=== PATIENT | female | born 1935 | race Caucasian/White ===

== ENCOUNTER 2023-08-19 14:10 | Outpatient (CLI) | payer MEDICARE, BC, SELFPAY ==
--- NOTE | 2023-08-19 14:15 | ECHO_ITS ---
Patient Info Name: Graciela Benitez Age: 88 years : 1935 Gender: Female Ht: 63 in Wt: 175 lbs BSA: 1.91 m2 HR: 115 bpm BP: 102 / 80 mmHg Heart Rhythm: Tachycardia Technical Quality: Good Exam Date: 08/19/2023 2:34 PM Exam Location: [facility] Patient Status: Outpatient Admit Date: 08/19/2023 Staff Ordering Physician: Verónica Boss APRN Duplicating Machine Mechanic: Yoselyn Eng RDCS Attending Provider: Verónica Boss APRN Exam Type: CA echo doppler color flow Study Info Indications R60.9 - Edema, unspecified Complete two-dimensional, color flow and Doppler transthoracic echocardiogram is performed. Summary 1. Complete two-dimensional, color flow and Doppler transthoracic echocardiogram is performed. 2. Left ventricular chamber dimension is normal. 3. Left ventricular systolic function is hyperdynamic, estimated at >70%. 4. There is mild concentric increased left ventricular wall thickness. 5. The left ventricular diastolic function is grade I diastolic dysfunction. 6. E/e' 9 is minimally elevated. 7. There is moderate aortic valve sclerosis. 8. There is mild aortic valve stenosis with a peak velocity of 256 cm/s, mean gradient of 13 mmHg, and aortic valve area of 1.7 cm2. 9. There is mild tricuspid valve regurgitation. 10. No pulmonary hypertension, estimated pulmonary arterial systolic pressure is 34 mmHg. 11. There is trace pulmonic regurgitation. Left Ventricle E/e' 9 is minimally elevated. Left ventricular chamber dimension is normal. Left ventricular systolic function is hyperdynamic, estimated at >70%. There is mild concentric increased left ventricular wall thickness. The left ventricular diastolic function is grade I diastolic dysfunction. Right Ventricle Right ventricular chamber dimension is normal. Right ventricular systolic function is normal. Left Atria Left atrial chamber dimension is normal. Right Atria Right atrial chamber dimension is normal. Aortic Valve The aortic valve is probable trileaflet. There is moderate aortic valve sclerosis. There is mild aortic valve stenosis with a peak velocity of 256 cm/s, mean gradient of 13 mmHg, and aortic valve area of 1.7 cm2. There is no aortic valve regurgitation. Pulmonic Valve There is trace pulmonic regurgitation. Mitral Valve There is no mitral valve stenosis. There is no mitral valve regurgitation. Tricuspid Valve There is mild tricuspid valve regurgitation. No pulmonary hypertension, estimated pulmonary arterial systolic pressure is 34 mmHg. Pericardium/Pleural There is no pericardial effusion. Inferior Vena Cava Normal inferior vena cava with >50% collapse upon inspiration consistent with normal right atrial pressure, 5 mmHg. Aorta The aortic root size at the sinus of Valsalva is normal. Left Ventricular Outflow Tract Name Value Normal LVOT 2D LVOT Diameter 2.0 cm LVOT Doppler LVOT Peak Gradient 8 mmHg LVOT Mean Gradient 3 mmHg LVOT VTI 20 cm LVOT VTI/AV VTI Ratio 0.6 LVOT Stroke Volume 63 ml LVOT CO 5.7 l/min
== END 2023-08-19 14:11 | disposition home or self-care (01) ==
LOC: ANHCARD 14:11
PROVIDERS: PCP Nurse Practitioner Family; Visit Provider Nurse Practitioner Family
DX: R60.9 Edema, unspecified (principal); R53.83 Other fatigue; R06.09 Other forms of dyspnea; I35.0 Nonrheumatic aortic (valve) stenosis; I36.1 Nonrheumatic tricuspid (valve) insufficiency
CPT/HCPCS: 93306

== ENCOUNTER 2023-11-10 15:34 | Outpatient (CLI) | payer MEDICARE, BC, SELFPAY ==
--- NOTE | ~2023-11-10 | XR_ITS ---
EXAMINATION: XR chest 2V Exam Date/Time: 11/10/2023 15:55 OPTICAL ENGINEER HISTORY: PAIN AFTER FALL Comparison: 11/19/2019. RESULT: Lines, tubes, and devices: None. Lungs and pleura: Senescent changes. Streaky and subsegmental opacities in the left lower lung. Cardiomediastinal silhouette: Stable. Other: No acute osseous or upper abdominal finding. IMPRESSION: Streaky and subsegmental lower lung opacities, may represent atelectasis and/or consolidation. Reviewed, dictated and finalized at location K. CAL ENGINEER
[2023-11-10 16:13] LABS: Basophils Absolute Auto 0.1 K/mm3 (0.0-0.1); Basophils Percent Auto 0.5 % (0.2-1.2); Eosinophils Absolute Auto 0.1 K/mm3 (0-0.3); Eosinophils Percent Auto 0.7 % (0-4.4); Hematocrit 44.9 % (37.0-47.0); Hemoglobin 14.9 g/dL (12.0-15.0); Immature Granulocyte Absolute 0.02 K/mm3 (0.00-0.031); Immature Granulocyte Percent A 0.2 % (0-0.5); Lymphocytes Absolute Auto 2.08 K/mm3 (0.9-3.2); Mean Corpuscular HGB Conc 33.2 g/dl (32-36); Mean Corpuscular Hemoglobin 30.7 pg (26-34); Mean Corpuscular Volume 92.6 fl (80-100); Mean Platelet Volume 10.4 fl (7.4-10.4); Monocytes Absolute Auto 0.7 K/mm3 (0.1-0.6); Monocytes Percent Auto 6.8 % (2.6-8.5); Neutrophils Percent Auto 70.8 % (45.5-73.1); Platelet Count Result 295 k/mm3 (150-375); Red Blood Count 4.85 M/mm3 (4.2-5.4); Red Cell Distribution Width 13.2 % (11.5-14.5); White Blood Count 9.9 K/mm3 (4.5-10.0)
[2023-11-10 16:26] LABS: Alanine Aminotransferase 19 U/L (6-35); Albumin Level 4.4 g/dL (3.5-5.1); Alkaline Phosphatase 109 U/L (38-126); Anion Gap 11 mmol/L (8-16); Aspartate Amino Transferase 25 U/L (14-36); Bilirubin,Total 0.7 mg/dL (0.2-1.3); Blood Urea Nitrogen 25 mg/dL (7-17); Carbon Dioxide 24 mmol/L (22-30); Chloride 106 mmol/L (98-107); Cholesterol 177 mg/dL (0-200); Estimated Glomerular Filt Rate > 60; Glucose 123 mg/dL (65-110); HDL Direct 67 mg/dL; Sodium 141 mmol/L (137-145); Triglycerides 131 mg/dL (<150)
[2023-11-10 16:33] LABS: NT Pro B Type Natriuretic Pept 111 pg/mL (19.9-100)
[2023-11-10 16:37] LABS: LDL Cholesterol Direct 77 mg/dL
[2023-11-10 17:15] LABS: Vitamin D 25 Hydroxy 51.7 ng/mL
[2023-11-10 17:25] LABS: Vitamin B12 > 1000.0 pg/mL (239-931)
[2023-11-10 17:45] LABS: Hemoglobin A1C 5.6 % (<5.7)
== END 2023-11-10 15:35 | disposition home or self-care (01) ==
PROVIDERS: PCP Nurse Practitioner Family; Visit Provider Nurse Practitioner Family
DX: R60.9 Edema, unspecified (principal); I10 Essential (primary) hypertension; R53.83 Other fatigue; E55.9 Vitamin D deficiency, unspecified; E78.2 Mixed hyperlipidemia; Z78.0 Asymptomatic menopausal state; R06.09 Other forms of dyspnea; Z79.899 Other long term (current) drug therapy; Z13.228 Encounter for screening for other metabolic disorders; Z13.21 Encounter for screening for nutritional disorder; Z13.1 Encounter for screening for diabetes mellitus; Z13.0 Encounter for screening for diseases of the blood and blood-forming organs and certain disorders involving the immune mechanism; R09.89 Other specified symptoms and signs involving the circulatory and respiratory systems
CPT/HCPCS: 36415; 71046; 80053; 80061; 82306; 82607; 83036; 83880; 84443; 85025

== ENCOUNTER 2024-10-25 11:43 | Outpatient (CLI) | payer MEDICARE, BC, SELFPAY ==
--- NOTE | 2024-10-25 11:49 | ECHO_ITS ---
Patient Info Name: Graciela Benitez Age: 89 years : 1935 Gender: Female Ht: 63 in Wt: 189 lbs BSA: 1.99 m2 HR: 100 bpm BP: 123 / 85 mmHg Technical Quality: Fair Exam Date: 10/25/2024 12:02 PM Exam Location: Echo Lab Patient Status: Outpatient Admit Date: 10/25/2024 Staff Ordering Physician: Sascha Shaikh DO General Manager Oracle Data Cloud: Marine Cast RDCS Attending Provider: Sascha Shaikh DO Referring Physician: Neel COSTA; Exam Type: CA echo doppler color flow Study Info Indications I35.0 - Nonrheumatic aortic (valve) stenosis Complete two-dimensional, color flow and Doppler transthoracic echocardiogram is performed. Strain analysis performed. Summary 1. Complete two-dimensional, color flow and Doppler transthoracic echocardiogram is performed. 2. Left ventricular chamber dimension is normal. 3. Left ventricular systolic function is hyperdynamic, estimated at >70%. 4. There is mild concentric increased left ventricular wall thickness. 5. The left ventricular diastolic function is grade I diastolic dysfunction. 6. Global longitudinal strain is slightly abnormal at -16.1%. 7. There is moderate aortic valve sclerosis. 8. There is mild aortic valve stenosis with a peak velocity of 262 cm/s, mean gradient of 12 mmHg, and aortic valve area of 1.6 cm2. 9. There is trace tricuspid valve regurgitation. 10. No pulmonary hypertension, estimated pulmonary arterial systolic pressure is 37 mmHg. Left Ventricle Global longitudinal strain is slightly abnormal at -16.1%. Tissue doppler was not performed. Left ventricular chamber dimension is normal. Left ventricular systolic function is hyperdynamic, estimated at >70%. There is mild concentric increased left ventricular wall thickness. The left ventricular diastolic function is grade I diastolic dysfunction. Right Ventricle Right ventricular chamber dimension is normal. Right ventricular systolic function is normal. Left Atria Left atrial chamber dimension is normal. Right Atria Right atrial chamber dimension is normal. Aortic Valve The aortic valve is trileaflet. There is moderate aortic valve sclerosis. There is mild aortic valve stenosis with a peak velocity of 262 cm/s, mean gradient of 12 mmHg, and aortic valve area of 1.6 cm2. There is no aortic valve regurgitation. Pulmonic Valve There is no pulmonic regurgitation. Mitral Valve There is no mitral valve stenosis. There is no mitral valve regurgitation. Tricuspid Valve There is trace tricuspid valve regurgitation. No pulmonary hypertension, estimated pulmonary arterial systolic pressure is 37 mmHg. Pericardium/Pleural There is no pericardial effusion. Inferior Vena Cava Normal inferior vena cava with >50% collapse upon inspiration consistent with normal right atrial pressure, 5 mmHg. Aorta The aortic root size at the sinus of Valsalva is normal. Left Ventricular Outflow Tract Name Value Normal LVOT 2D LVOT Diameter 2.0 cm LVOT Doppler LVOT Peak Gradient 6 mmHg LVOT Mean Gradient 3 mmHg LVOT VTI 22 cm LVOT VTI/AV VTI Ratio 0.5 LVOT Stroke Volume 72 ml LVOT CO 5.9 l/min LVOT CI 3.0 l/min/m2 Pulmonic Valve Name Value Normal RVOT Doppler RVOT Peak Gradient 3 mmHg PV Doppler PV Peak Gradient 4 mmHg Mitral Valve Name Value Normal MV Doppler MV [place] 457 cm/s2 MV PHT 39 ms MV Area (PHT) 5.7 cm2 4.0-5.0 MV Diastolic Function MV E Peak Velocity 61 cm/s MV A Peak Velocity 110 cm/s MV E/A 0.6 MV Decel Time 134 ms Tricuspid Valve Name Value Normal TV Regurgitation Doppler TR Peak Velocity 281 cm/s TR Peak Gradient 28 mmHg Estimated PAP/RSVP RA Pressure 5 mmHg <=5 PA Systolic Pressure 37 mmHg <36 RV Systolic Pressure 37 mmHg <36 Aorta Name Value Normal Ascending Aorta Ao Root Diameter (MM) 3.0 cm Ao Root Diam Index (MM) 1.5 cm/m2 Aortic Valve Name Value Normal AV 2D/MM AV Area (Planimetry) 1.2 cm2 AV Doppler AV Peak Velocity 262 cm/s AV Peak Gradient 22 mmHg AV Mean Gradient 12 mmHg AV VTI 44 cm AV Area (Cont Eq VTI) 1.6 cm2 >=3.0 AV Area (Cont Eq Jean) 1.7 cm2 AV Regurgitation 2D LVOT Area 3.2 cm2 Ventricles Name Value Normal LV Dimensions 2D/MM IVS Diastolic Thickness (2D) 1.0 cm 0.6-1.0 IVS Diastole Thickness (MM) 0.7 cm 0.6-0.9 LVID Diastole (2D) 3.1 cm 3.8-5.2 LVID Diastole (MM) 4.5 cm 3.8-5.2 LVIW Diastolic Thickness (2D) 0.8 cm 0.6-0.9 LVIW Diastolic Thickness (MM) 0.7 cm 0.6-0.9 LVID Systole (2D) 2.0 cm 2.2-3.5 LVID Systole (MM) 2.7 cm 2.2-3.5 LVOT Diameter 2.0 cm LV Mass (2D Cubed) 69.25 g 67.00-162.00 LV Mass Index (2D Cubed) 35 g/m2 43-95 Relative Wall Thickness (2D) 0.49 LV Mass (MM Cubed) 102.84 g 67.00-162.00 LV Mass Index (MM Cubed) 52 g/m2 43-95 Relative Wall Thickness (MM) 0.32 LV Fractional Shortening/Ejection Fraction 2D/MM LV Fractional Shortening (2D) 36 % 27-45 LV Fractional Shortening (MM) 40 % 27-45 LV EF (MM Teicholz) 71 % 54-74 LV EF (2D Teicholz) 67 % 54-74 LV Diastolic Volume (4C MOD) 47 ml LV EF (4C MOD) 67 % LV Diastolic Volume (2C MOD) 54 ml LV EF (2C MOD) 65 % LV Diastolic Volume (BP MOD) 50 ml 46-106 LV Diastolic Volume Index (BP MOD) 25 ml/m2 29-61 LV Systolic Volume (BP MOD) 17 ml 14-42 LV Systolic Volume Index (BP MOD) 9 ml/m2 8-24 LV EF (BP MOD) 65 % 54-74 LV Diastolic Length (4C) 7.3 cm LV Systolic Length (4C) 6.4 cm LV Stroke Volume (4C MOD) 31 ml Atria Name Value Normal LA Dimensions LA Dimension (MM) 3.7 cm 2.7-3.8 LA Volume (4C A-L) 22 ml LA Volume (BP A-L) 28 ml RA Dimensions RA Area (4C) 13.1 cm2 <=18.0 EchoPAC Name Value Normal AutoEF LVCO_BiP_Q (Rtoa6ZSL) 3.5 l/min LVEF_BiP_Q (Llzw1UXT) 59 % LVSV_BiP_Q (Fixq3QMC) 39 ml LVVED_BiP_Q (Lwas7WDL) 65 ml LVVES_BiP_Q (Azur9ACF) 27 ml HR_4Ch_Q (Bhat7IPU) 89 bpm LVCO_4Ch_Q (Dvqd8HBI) 2.9 l/min LVEF_4Ch_Q (Gpuj8VWY) 58 % LVLd_4Ch_Q (Cjht3NXU) 7.0 cm LVLs_4Ch_Q (Gwhv0XIK) 5.8 cm LVSV_4Ch_Q (Ibqg4ITY) 32 ml LVVED_4Ch_Q (Lsbh2BNE) 56 ml LVVES_4Ch_Q (Kxhz0CPW) 23 ml HR_2Ch_Q (Fipq4CHM) 89 bpm LVCO_2Ch_Q (Wjil3HZU) 4.2 l/min LVEF_2Ch_Q (Nkzc6ELD) 61 % LVLd_2Ch_Q (Yovi7UEW) 7.2 cm LVLs_2Ch_Q (Vrax8OGT) 5.8 cm LVSV_2Ch_Q (Lidx8PXW) 47 ml LVVED_2Ch_Q (Jvln9EVJ) 77 ml LVVES_2Ch_Q (Mhul7QLZ) 30 ml ALLISON AA peak sys SL (AWMA) 21.4 % AAS peak sys SL (AWMA) 21.7 % AI peak sys SL (AWMA) 23.4 % AL peak sys SL (AWMA) 17.2 % AP peak sys SL (AWMA) 13.8 % peak sys SL (AWMA) 16.9 % AVC (AWMA) 322 ms BA peak sys SL (AWMA) 18.6 % BAS peak sys SL (AWMA) 14.9 % BI peak sys SL (AWMA) 17.0 % BL peak sys SL (AWMA) 11.6 % BP peak sys SL (AWMA) 13.2 % BS peak sys SL (AWMA) 14.1 % G peak SL(A2C) (AWMA) 19.5 % G peak SL(A4C) (AWMA) 15.3 % G peak SL(APLAX) (AWMA) 13.7 % G peak SL(Avg) (AWMA) 16.1 % MA peak sys SL (AWMA) 23.6 % MAS peak sys SL (AWMA) 9.6 % NV peak sys SL (AWMA) 14.6 % ML peak sys SL (AWMA) 17.8 % MP peak sys SL (AWMA) 8.5 % MS peak sys SL (AWMA) 19.7 % Report Signatures
== END 2024-10-25 11:44 | disposition home or self-care (01) ==
PROVIDERS: PCP Nurse Practitioner Family; Visit Provider Internal Medicine Cardiovascular Disease
DX: I35.0 Nonrheumatic aortic (valve) stenosis (principal)
CPT/HCPCS: 93306

== ENCOUNTER 2025-01-24 11:11 | Outpatient (CLI) | payer MEDICARE, BC, SELFPAY ==
[2025-01-24 11:44] LABS: Hematocrit 45.2 % (37.0-47.0); Hemoglobin 14.8 g/dL (12.0-15.0); Mean Corpuscular HGB Conc 32.7 g/dl (32-36); Mean Corpuscular Hemoglobin 31.4 pg (26-34); Mean Corpuscular Volume 95.8 fl (80-100); Mean Platelet Volume 10.3 fl (7.4-10.4); Platelet Count Result 246 k/mm3 (150-375); Red Blood Count 4.72 M/mm3 (4.2-5.4); Red Cell Distribution Width 12.7 % (11.5-14.5); White Blood Count 7.5 K/mm3 (4.5-10.0)
[2025-01-24 12:00] LABS: Alanine Aminotransferase 19 U/L (6-35); Albumin Level 4.2 g/dL (3.5-5.1); Alkaline Phosphatase 72 U/L (38-126); Anion Gap 9 mmol/L (4-12); Aspartate Amino Transferase 21 U/L (14-36); Bilirubin,Total 0.7 mg/dL (0.2-1.3); Blood Urea Nitrogen 25 mg/dL (7-17); Calcium 9.9 mg/dL (8.4-10.2); Carbon Dioxide 29 mmol/L (22-30); Chloride 104 mmol/L (98-107); Cholesterol 184 mg/dL (0-200); Estimated Glomerular Filt Rate 56; Glucose 135 mg/dL (65-110); HDL Direct 69 mg/dL; Potassium 4.5 mmol/L (3.4-5.0); Sodium 142 mmol/L (137-145); Triglycerides 95 mg/dL (<150)
[2025-01-24 12:14] LABS: LDL Cholesterol Direct 83 mg/dL
[2025-01-24 13:10] LABS: Folic Acid > 20.0 ng/mL (2.76->20)
[2025-01-24 13:12] LABS: Vitamin D 25 Hydroxy 87.2 ng/mL
--- OUTSIDE RECORDS SUMMARY | 2025-01-24 13:19 | XMS_ITS | Continuity of Care Document ---
Author Organization [facility] Address [address] [place] [address] Phone Care Team Providers Care Textile Knitter Name Role Phone Nurse, Registered Unavailable Unavailable Semaj RN, Aaron Unavailable Unavailable Procedures Procedure Date Immunization Admin COVID19 Pfizer Dose 2 COVID19 Vaccine Pfizer Immunization Admin COVID19 Pfizer Dose 1 COVID19 Vaccine Pfizer Advance Directives Directive Yes / No Effective Date File Name No Information Encounters Encounter Description Practice Location Reason(s) For Visit Diagnoses Date Provider Providers Copied on Encounter [facility] , [address], [place], [place], [address], [place] tel:[phone] COVID Mobile PFIZER 2ND DOSE (chief complaint) Encounter for immunization Nurse Registered . [address] [place] [address], [id number], [place]. tel:[phone] Referring Provider: Mellissa Villasenor, [address], [place], [address]. tel:[phone] lting Provider: Aaron Cha, [address], [place], [address]. tel:[phone] [facility] , [address], [place], [place], [address], [place] tel:[phone] COVID Mobile PFIZER DOSE 1 (chief complaint) Encounter for immunization Nurse Registered . [address], [place], [place], [address], [place]. tel:[phone] Referring Provider: Mellissa Villasenor, [address], [place], [address]. tel:[phone] Family History Family Member Type Diagnosis Age At Onset No Information Immunizations Vaccine Date Status Comments COVID-19 Pfizer administered Source: New Immunization Record COVID-19 Pfizer administered Note: PATIEN T TOLERATED WELL ; Source: New Immunization Record Payers Payer name Insurance type Covered alliance party ID Authoriza tion(s) No Information Social [...]
--- OUTSIDE RECORDS SUMMARY | 2025-01-24 13:19 | XMS_ITS | Clinical Summary ---
Author Organization [facility] Address [address] [address] Phone Care Team Providers Care Club Former Name Role Phone John Hernandez MD Primary Care Provider [phone] Ancelmorojas Emiliano Jason DO Unavailable [phone] Allergies Active Allergy Reactions Criticality Noted Date Comments Benzonatate Unknown 01/23/2017 Cefaclor Unknown 01/23/2017 Medications lisinopril (PRINIVIL, ZESTRIL) 10 MG Tablet daily. Active Niacin Powder nightly. Active amLODIPine (NORVASC) 5 MG Tablet daily. Active pravastatin (PRAVACHOL) 10 MG Tablet daily. Active Probiotic Product ([facility] DIGESTIVE PROBIOTIC) Capsule daily. Active Glucosamine HCl ([facility] GLUCOSAMINE) 1500 MG Tablet daily. Activ e [place]-3 Fatty Acids ([facility] FISH OIL) 1200 MG CAPSULE DELAYED RELEASE daily. Active Cyanocobalamin (V-R VITAMIN B-12 TR) 1000 MCG Tablet Controlled Release daily. Active Cholecalciferol ([facility] VITAMIN D3) 1000 UNIT Capsule daily. Active Calcium-Magnesi um-Zinc 167-83-8 MG Tablet daily. Active Aspirin 81 MG Tablet daily. Active polyethylene glycol (MIRALAX) Powder Use entire 255g bottle with 64oz of clear liquid as directed for colonoscopy prep. 255 g 0 6 Active Active Problems Problem Noted Date Diagnosed Date Hiatal hernia Family History Medical History Relation Name Comments Diabetes Father Heart Attack Father Hypertension Father Cancer Sister Breast Relation Name Status Comments Father Sister Social History Tobacco Use Types Packs/Day Years Used Date Smoking Tobacco: Never Alcohol Use Standard Drinks/Week Comments No 0 (1 standard drink = 0.6 oz pur e alcohol) Comments Unknown Sex and Gender Information Value Date Recorded Sex Assigned at Not on file Legal Sex Female 9:59 PM CDT Gender Identity Not on file Sexual Orientation Not on file Plan of Treatment Health Maintenance Due Date Last Done Comments DEXA Bone Density 1935 Hepatitis C Virus (HCV) Screening 1935 TdaP Immunization 1935 Zoster Immunization (1 of 2) 1987 Respiratory Syncytial Virus (RSV) Immunization (Adult) (1 - 1-dose 75+ series) 2012 Pneumococcal Immunization (50+ years) (2 of 2 - PPSV23) 12/08/2018 12/08/2017 Influenza Immunization (#1) 07/31/202407/31, 09/13/2014 SARS-COV-2 Immunization ( season) 2024 09/07/2021, 01/11/2021, 12/23/2020 Pneumococcal Immunization Combined Discontinued 12/08/2017 Hepatitis B Immunization Aged Out No longer eligible based on patient's age to complete this topic Meningococcal Immunization (ACWY) Aged Out No longer eligible based on patient's age to complete this topic Rotavirus Immunization Aged Out No lo nger eligible based on patient's age to complete this topic Insurance MEDICARE [facility] Care Teams Club Former Relationship Specialty Start Date End Date John Hernandez MD [address] [place], [place] [id number] PCP - General Internal Medicine 09/25/16 Emiliano Pedraza DO [address] [place] [address] Gastroenterology 01/19/17
== END 2025-01-24 11:12 | disposition home or self-care (01) ==
LOC: ANHLAB 11:13
PROVIDERS: PCP Nurse Practitioner Family; Visit Provider Nurse Practitioner Family
DX: I10 Essential (primary) hypertension (principal); I35.8 Other nonrheumatic aortic valve disorders; I35.0 Nonrheumatic aortic (valve) stenosis; E78.2 Mixed hyperlipidemia; E55.9 Vitamin D deficiency, unspecified; R79.89 Other specified abnormal findings of blood chemistry; K44.9 Diaphragmatic hernia without obstruction or gangrene; R29.818 Other symptoms and signs involving the nervous system; R41.89 Other symptoms and signs involving cognitive functions and awareness; Z00.00 Encounter for general adult medical examination without abnormal findings
CPT/HCPCS: 36415; 80053; 80061; 82306; 82607; 82746; 85027

== ENCOUNTER 2025-07-25 11:28 | Outpatient (CLI) | payer MEDICARE, BC, SELFPAY ==
--- OUTSIDE RECORDS SUMMARY | 2021-01-11 06:30 | XMS_ITS | Continuity of Care Document ---
Author Organization [facility] Address [address] [place] [address] Phone Care Team Providers Care Master Automotive Technician Name Role Phone Nurse, Registered Unavailable Unavailable Semaj RN, Aaron Unavailable Unavailable Procedures Procedure Date Immunization Admin COVID19 Pfizer Dose 2 COVID19 Vaccine Pfizer Immunization Admin COVID19 Pfizer Dose 1 COVID19 Vaccine Pfizer Advance Directives Directive Yes / No Effective Date File Name No Information Encounters Encounter Description Practice Location Reason(s) For Visit Diagnoses Date Provider Providers Copied on Encounter [facility] , [address], [place], [place], [address], [place] tel:[phone] COVID Mobile PFIZER 2ND DOSE (chief complaint) Encounter for immunization Nurse Registered . [address] [place] [address], [id number], [place]. tel:[phone] Referring Provider: Mellissa Villasenor, [address], [place], [address]. tel:[phone] lting Provider: Aaron Cha, [address], [place], [address]. tel:[phone] [facility] , [address], [place], [place], [id number], [place] tel:[phone] COVID Mobile PFIZER DOSE 1 (chief complaint) Encounter for immunization Nurse Registered . [address], [place], [place], [id number], . tel:[phone] Referring Provider: Mellissa Villasenor, [address], [place], [address]. tel:[phone] Family History Family Member Type Diagnosis Age At Onset No Information Immunizations Vaccine Date Status Comments COVID-19 Pfizer administered Source: New Immunization Record COVID-19 Pfizer administered Note: PATIEN T TOLERATED WELL ; Source: New Immunization Record Payers Payer name Insurance type Covered constitution party ID Authoriza tion(s) No Information Social History Type Description Quantity Date Captured Comments Sex Female Smoking Status No Information Gender Identity Female Chief Complaint And Reason For Visit From encounter dated '01/11/2021 11:30'. PFIZER 2ND DOSE (chief complaint) Reason For Referral Reason For Referral No Information History Of Present Illness Encounter Date Complaint History Of Prese nt Illness PFIZER 2ND DOSE PFIZER DOSE 1 Functional Status Date Functional Assessmen t No Information Instructions Date Instruction Additional Infor mation No Information Assessments Type Assessment Date assessment Encounter for immunization Patient Care Teams Name Effective Dates (start - stop) Status Members No Information
[2025-07-25 11:51] LABS: Hematocrit 44.4 % (37.0-47.0); Hemoglobin 14.4 g/dL (12.0-15.0); Mean Corpuscular HGB Conc 32.4 g/dl (32-36); Mean Corpuscular Hemoglobin 30.8 pg (26-34); Mean Corpuscular Volume 95.1 fl (80-100); Platelet Count Result 240 k/mm3 (150-375); Red Blood Count 4.67 M/mm3 (4.2-5.4); White Blood Count 7.3 K/mm3 (4.5-10.0)
--- OUTSIDE RECORDS SUMMARY | 2025-07-25 11:52 | XMS_ITS | Clinical Summary ---
Author Organization [facility] Address [address], [address] [address] Phone Care Team Providers Care Nutrition Educator Name Role Phone John Hernandez MD Primary Care Provider [phone] Emiliano Pedraza DO Unavailable [phone] Allergies Active Allergy Reactions Criticality Noted Date Comments Benzonatate Unknown 01/23/2017 Cefaclor Unknown 01/23/2017 Medications lisinopril (PRINIVIL, ZESTRIL) 10 MG Tablet daily. Active Niacin Powder nightly. Active amLODIPine (NORVASC) 5 MG Tablet daily. Active pravastatin (PRAVACHOL) 10 MG Tablet daily. Active Probiotic Product ([facility] DIGESTIVE PROBIOTIC) Capsule daily. Active Glucosamine HCl ([facility] GLUCOSAMINE) 1500 MG Tablet daily. Activ e [place]-3 Fatty Acids ([facility] FISH OIL) 1200 MG CAPSULE DELAYED RELEASE daily. Active Cyanocobalamin (V-R VITAMIN B-12 TR) 1000 MCG Tablet Controlled Release daily. Active Cholecalciferol ([facility] VITAMIN D3) 1000 UNIT Capsule daily. Active [...] Health Maintenance Due Date Last Done Comments Hepatitis C Virus (HCV) Screening 1935 TdaP Immunization 1935 Zoster Immunization (1 of 2) 1987 Respiratory Syncytial Virus (RSV) Immunization (Adult) (1 - 1-dose 75+ series) 2012 Pneumococcal Immunization (5 0+ years) (2 of 2 - PCV20 or PCV21) 12/08/2018 12/08/2017 SARS-COV-2 Immunization (4 - season) 2024 09/07/2021, 01/11/2021, 12/23/2020 Influenza Immunization (#1) 07/31/202507/31, 09/13/2014 Pneumococcal Immunization Combined Discontinued 12/08/2017 Hepatitis B Immunization Aged Out No longer eligible based on patient's age to complete this topic Human Papillomavirus (HPV) Immunization Aged Out No longer eligible based on patient's age to complete this topic Meningococcal Immunization (ACWY) Aged Out No longer eligible based on patient's age to complete this topic Rotavirus Immunization Aged Out No lo nger eligible based on patient's age to complete this topic Insurance MEDICARE [facility] Care Teams Nutrition Educator Relationship Specialty Start Date End Date John Hernandez MD PCP - General Internal Medicine 09/25/16 Emiliano Pedraza DO Gastroenterology 01/19/17
[2025-07-25 12:13] LABS: MALB Creatinine Ratio 8.4 mg/g (0-30)
[2025-07-25 12:15] LABS: Alanine Aminotransferase 22 U/L (6-35); Albumin Level 4.1 g/dL (3.5-5.1); Alkaline Phosphatase 83 U/L (38-126); Anion Gap 8 mmol/L (4-12); Aspartate Amino Transferase 28 U/L (14-36); Bilirubin,Total 0.6 mg/dL (0.2-1.3); Blood Urea Nitrogen 26 mg/dL (7-17); Calcium 9.5 mg/dL (8.4-10.2); Carbon Dioxide 27 mmol/L (22-30); Chloride 103 mmol/L (98-107); Cholesterol 186 mg/dL (0-200); Estimated Glomerular Filt Rate 56; Glucose 162 mg/dL (65-110); HDL Direct 63 mg/dL; Magnesium 1.9 mg/dL (1.6-2.3); Potassium 4.2 mmol/L (3.4-5.0); Sodium 138 mmol/L (137-145); Total Protein 7.1 g/dL (6.3-8.2); Triglycerides 151 mg/dL (<150)
[2025-07-25 12:18] LABS: Hemoglobin A1C 5.7 % (<5.7)
[2025-07-25 13:26] LABS: Vitamin B12 876.0 pg/mL (239-931)
== END 2025-07-25 11:29 | disposition home or self-care (01) ==
PROVIDERS: PCP Nurse Practitioner Family; Visit Provider Nurse Practitioner Family
DX: I12.9 Hypertensive chronic kidney disease with stage 1 through stage 4 chronic kidney disease, or unspecified chronic kidney disease (principal); N18.31 Chronic kidney disease, stage 3a; E78.2 Mixed hyperlipidemia; E55.9 Vitamin D deficiency, unspecified; R79.89 Other specified abnormal findings of blood chemistry; K44.9 Diaphragmatic hernia without obstruction or gangrene; I35.8 Other nonrheumatic aortic valve disorders; I35.0 Nonrheumatic aortic (valve) stenosis; R29.818 Other symptoms and signs involving the nervous system; R41.89 Other symptoms and signs involving cognitive functions and awareness; R73.01 Impaired fasting glucose; Z79.899 Other long term (current) drug therapy; Z86.0100 Personal history of colon polyps, unspecified
CPT/HCPCS: 36415; 80053; 80061; 82043; 82306; 82607; 82746; 83036; 83735; 85027

== ENCOUNTER 2025-11-02 09:20 | Outpatient (CLI) | payer MEDICARE, BC, SELFPAY ==
--- NOTE | ~2025-11-02 | XR_ITS ---
XR abdomen/kub 1V 11/02/2025 10:01 Indication: Chronic constipation Procedure: KUB Comparison: CT dated 02/22/2014 Findings: Bowel gas pattern nonobstructive. Moderate colonic fecal loading. Severe lumbar spondylosis with levoscoliosis. There is atherosclerosis of the aorta. There are surgical changes in the left upper abdomen and pelvis. There are amorphous calcifications in the left pelvis, suspicious for dermoid. Small left pleural effusion. Left basilar airspace disease may represent atelectasis or pneumonia. Impression: 1: Amorphous calcifications left pelvis suspicious for dermoid. Consider correlation with CT. 2: Left basilar airspace disease may represent pneumonia and/or atelectasis. Consider aspiration in the appropriate clinical setting. 3: Small left pleural effusion. Reviewed, dictated and finalized at location I. RENCE ASSISTANT Impression: 1: Amorphous calcifications left pelvis suspicious for dermoid. Consider correl ation with CT. 2: Left basilar airspace disease may represent pneumonia and/or atelectasis. Co nsider aspiration in the appropriate clinical setting. 3: Small left pleural effusion.
--- OUTSIDE RECORDS SUMMARY | 2025-11-02 10:12 | XMS_ITS | Clinical Summary ---
Author Organization [facility] Address [address] [address] Phone Care Team Providers Care Director Case Name Role Phone John Hernandez MD Primary Care Provider [phone] Emiliano Pedraza DO Unavailable [phone] Allergies Active Allergy Reactions Criticality Noted Date Comments Benzonatate Unknown 01/23/2017 Cefaclor Unknown 01/23/2017 Medications lisinopril (PRINIVIL, ZESTRIL) 10 MG Tablet daily. Active Niacin Powder nightly. Active amLODIPine (NORVASC) 5 MG Tablet daily. Active pravastatin (PRAVACHOL) 10 MG Tablet daily. Active Probiotic Product ([facility] DIGESTIVE PROBIOTIC) Capsule daily. Active Glucosamine HCl ([facility] GLUCOSAMINE) 1500 MG Tablet daily. Activ e [place]-3 Fatty Acids ([facility] FISH OIL) 1200 MG CAPSULE DELAYED RELEASE daily. Active Cyanocobalamin (V-R VITAMIN B-12 TR) 1000 MCG Tablet Controlled Release daily. Active Cholecalciferol ([facility] VITAMIN D3) 1000 UNIT Capsule daily. [...] 1935 Zoster Immunization (1 of 2) 1987 Medicare Initial AWV [id number] 04/30/2003 Respiratory Syncytial Virus (RSV) Immunization (Adult) (1 - 1-dose 75+ series) 2012 Pneumococcal Immunization (5 0+ years) (2 of 2 - PCV20 or PCV21) 12/08/2018 12/08/2017 Influenza Immunization (#1) 07/31/202507/31, 09/13/2014 SARS-COV-2 Immunization ( season) 2025 09/07/2021, 01/11/2021, 12/23/2020 Pneumococcal Immunization Combined Discontinued [...] age to complete this topic Insurance MEDICARE [facility] Care Teams Director Case Relationship Specialty Start Date End Date John Hernandez MD PCP - General Internal Medicine 09/25/16 Emiliano Pedraza DO Gastroenterology 01/19/17
[2025-11-02 10:17] LABS: Hematocrit 44.2 % (37.0-47.0); Hemoglobin 14.4 g/dL (12.0-15.0); Mean Corpuscular HGB Conc 32.6 g/dl (32-36); Mean Corpuscular Hemoglobin 30.9 pg (26-34); Mean Corpuscular Volume 94.8 fl (80-100); Platelet Count Result 244 k/mm3 (150-375); Red Blood Count 4.66 M/mm3 (4.2-5.4); White Blood Count 5.6 K/mm3 (4.5-10.0)
[2025-11-02 10:42] LABS: Iron 117 ug/dL (37-170)
[2025-11-02 10:59] LABS: Percent Iron Saturation 35 % (20-50)
[2025-11-02 11:24] LABS: Ferritin 45.40 ng/mL (11.1-264)
[2025-11-02 11:51] LABS: Vitamin B12 887.0 pg/mL (239-931)
[2025-11-02 12:01] LABS: Alanine Aminotransferase 20 U/L (6-35); Albumin Level 4.3 g/dL (3.5-5.1); Alkaline Phosphatase 78 U/L (38-126); Anion Gap 6 mmol/L (4-12); Aspartate Amino Transferase 25 U/L (14-36); Bilirubin,Total 0.8 mg/dL (0.2-1.3); Blood Urea Nitrogen 41 mg/dL (7-17); Calcium 9.9 mg/dL (8.4-10.2); Carbon Dioxide 26 mmol/L (22-30); Chloride 105 mmol/L (98-107); Estimated Glomerular Filt Rate 41; Glucose 133 mg/dL (65-110); HDL Direct 63 mg/dL; Magnesium 2.1 mg/dL (1.6-2.3); Potassium 4.3 mmol/L (3.4-5.0); Sodium 137 mmol/L (137-145); Total Protein 7.3 g/dL (6.3-8.2); Triglycerides 112 mg/dL (<150)
[2025-11-02 12:21] LABS: Cholesterol 186 mg/dL (0-200)
== END 2025-11-02 09:21 | disposition home or self-care (01) ==
PROVIDERS: PCP Nurse Practitioner Family; Visit Provider Nurse Practitioner Family
DX: K59.00 Constipation, unspecified (principal); R79.89 Other specified abnormal findings of blood chemistry; I35.0 Nonrheumatic aortic (valve) stenosis; I35.8 Other nonrheumatic aortic valve disorders; E78.2 Mixed hyperlipidemia; E55.9 Vitamin D deficiency, unspecified; Z79.899 Other long term (current) drug therapy; Z86.0100 Personal history of colon polyps, unspecified; K44.9 Diaphragmatic hernia without obstruction or gangrene; R29.818 Other symptoms and signs involving the nervous system; R41.89 Other symptoms and signs involving cognitive functions and awareness; R41.3 Other amnesia; R60.0 Localized edema; I12.9 Hypertensive chronic kidney disease with stage 1 through stage 4 chronic kidney disease, or unspecified chronic kidney disease; N18.31 Chronic kidney disease, stage 3a
CPT/HCPCS: 36415; 74018; 80053; 80061; 82306; 82607; 82728; 82746; 83540; 83550; 83735; 85027